=== PATIENT | female | born 1945 | race Two or more races ===

== ENCOUNTER 2018-04-07 08:30 | Inpatient (IN) | payer OTHER ==
[2018-04-07] MEDS ORDERED: SIMVASTATIN40 MG (12:39)
[2018-04-07] MEDS ORDERED: AVALIDE 300-121 EACH (12:39)
[2018-04-07] MEDS ORDERED: NEURONTIN600 MG (12:40)
[2018-04-07] MEDS ORDERED: PROVENTIL HFA6.7 GM (12:40)
[2018-04-07] MEDS ORDERED: ZYRTEC10 M3 (12:40)
[2018-04-07] MEDS ORDERED: MEDROL2 MG (12:40)
[2018-04-07] MEDS ORDERED: MIRALAX17 GM (12:41)
[2018-04-07] MEDS ORDERED: [UNRECOGNIZED DRUG - OTHER] (12:41)
[2018-04-09] MEDS ORDERED: BUTALB-ACETAMI1 EACH PO (17:02)
[2018-04-15] MEDS ORDERED: HYOSCYAMINE0.125 M1 SL (15:07)
[2018-04-15] MEDS ORDERED: POLY119PG PO (15:08)
[2018-04-15] MEDS ORDERED: KETO10TA2 PO (15:08)
[2018-04-15] MEDS ORDERED: NEURONTIN300 MG PO (15:09)
== END 2018-04-15 17:25 | disposition home or self-care (01) | DRG 330 ==
LOC: O/R 04-09 05:40 → SURH 04-09 05:40 → RECOVERY 04-09 07:00 → SURH 04-09 16:33
PROVIDERS: Surgery
PROC: 0DTP4ZZ Resection of Rectum, Percutaneous Endoscopic Approach (ICD-10-PCS; 2018-04-09)
PROC: 0UQF4ZZ Repair Cul-de-sac, Percutaneous Endoscopic Approach (ICD-10-PCS; 2018-04-09)
PROC: 0DQP4ZZ Repair Rectum, Percutaneous Endoscopic Approach (ICD-10-PCS; 2018-04-09)
PROC: 0W3P8ZZ Control Bleeding in Gastrointestinal Tract, Via Natural or Artificial Opening Endoscopic (ICD-10-PCS; 2018-04-09)
PROC: 0DTN4ZZ Resection of Sigmoid Colon, Percutaneous Endoscopic Approach (ICD-10-PCS; principal; 2018-04-09 07:00)
PROC: 3E0F7GC Introduction of Other Therapeutic Substance into Respiratory Tract, Via Natural or Artificial Opening (ICD-10-PCS; 2018-04-14)
DX: K62.3 Rectal prolapse (principal); K91.71 Accidental puncture and laceration of a digestive system organ or structure during a digestive system procedure; K62.89 Other specified diseases of anus and rectum; N81.5 Vaginal enterocele; K62.4 Stenosis of anus and rectum; I10 Essential (primary) hypertension

== ENCOUNTER 2018-07-31 07:20 | Day surgery (SDC) | payer OTHER ==
[~2018-07-31 07:20] MED LIST: AVALIDE 300-121 EACH; BUTALB-ACETAMI1 EACH PO; HYOSCYAMINE0.125 M1 SL; KETO10TA2 PO; MEDROL2 MG; MIRALAX17 GM; NEURONTIN300 MG PO; NEURONTIN600 MG; POLY119PG PO; PROVENTIL HFA6.7 GM; SIMVASTATIN40 MG; ZYRTEC10 M3; [UNRECOGNIZED DRUG - OTHER]
== END 2018-07-31 13:30 | disposition home or self-care (01) ==
LOC: AMB-ENDOS 07:20 → CIR.AMB 14:15 → AMB-ENDOS 14:15
DX: D12.4 Benign neoplasm of descending colon (principal); D12.3 Benign neoplasm of transverse colon; K64.4 Residual hemorrhoidal skin tags

== ENCOUNTER 2020-10-17 10:17 | Day surgery (SDC) | payer OTHER | END 2020-10-17 17:45 | disposition home or self-care (01) | LOC: AMB-ENDOS 10:17 | PROVIDERS: ATTEND Surgery | DX: K62.89 Other specified diseases of anus and rectum (principal); K64.4 Residual hemorrhoidal skin tags; Z20.822 Contact with and (suspected) exposure to COVID-19 ==